=== PATIENT | male | born 1970 ===

== ENCOUNTER 2016-07-28 08:07 | Emergency (ER) | payer BC, OTHER ==
--- NOTE | 2016-07-28 08:14 | UC ---
Skin Complaint HPI - HPI Summary HPI Summary: Itchy rash in axillae and groin onset 4 days ago; pt suspects allergy but was on boy hemat[place] trip this weekend and was walking and sweating. NOw with redness and itching in the groin and arm pits. NO other rash. no fever. [ End ] - History of Current Complaint Stated Complaint: RASH Hx Obtained From: Patient Onset/Duration: Gradual Onset Skin Exposure Onset/Duration: Days Ago Onset Severity: Moderate Aggravating: Humidity Alleviating: Nothing Associated Signs & Symptoms: Positive: Negative Related History: Possible Reaction to: Environmental Exposure - Allergy/Home Medications Allergies/Adverse Reactions: Allergies Allergy/AdvReac Type Severity Reaction Status Date / Time No Known Allergies Allergy Verified 07/28/16 08:24 Home Medications: Home Medications Loratadine & Pseudoephedrine [Claritin-D 24 Hour 10-240 mg] 1 tab PO DAILY PRN 07/28/16 [History Confirmed 07/28/16] Review of Systems Constitutional: Negative Skin: Rash Eyes: Negative ENT: Negative Respiratory: Negative Cardiovascular: Negative Gastrointestinal: Negative Genitourinary: Negative Motor: Negative Neurovascular: Negative Musculoskeletal: Negative Neurological: Negative Psychological: Negative All Other Systems Reviewed And Are Negative: Yes PMH/Surg Hx/FS Hx/Imm Hx Previously Healthy: Yes Cardiovascular History Of: Denies: Cardiac Disorders Cancer History Of: Denies: Lung Cancer - Family History Known Family History: Negative: Cardiac Disease - Social History Occupation: Employed Full-time Lives: With Family Alcohol Use: None Substance Use Type: None Physical Exam Triage Information Reviewed: Yes Appearance: Well-Appearing, No Pain Distress, Well-Nourished Vital Signs Reviewed: Yes Eye Exam: Normal ENT Exam: Normal Dental Exam: Normal Neck exam: Normal Neck: Positive: 1 Respiratory Exam: Normal Cardiovascular Exam: Normal Musculoskeletal Exam: Normal Neurological Exam: Normal Psychological Exam: Normal Skin Exam: Normal Skin: Positive: rashes - erythematous macular red rash b/l axilla and in groin as well as gluteal fold. no discharge. no induration. no ecchymosis. Course/Dx - Differential Diagnoses - Skin Complaint Differential Diagnoses: Contact Dermatitis, Drug Rash, Eczema, Local Allergic Reaction, Viral Exanthem - Diagnoses Provider Diagnoses: intertrigo Discharge - Discharge Plan Condition: Good Disposition: HOME Prescriptions: Fluconazole [Diflucan 150 MG (NF)] 150 mg PO ONCE #2 tab Nystatin/Triamcinolon OINT(NF) [Mycolog Oint*] 1 applic .SEE ORDER BID PRN #1 tube PRN Reason: Itching Patient Education Materials: Skin Yeast Infection (ED) Referrals: Colton Sanders MD [Primary Care Provider] - 3 Days
[2016-07-28 08:53] VITALS: BP 134/66
== END 2016-07-28 08:45 | disposition home or self-care (01) ==
LOC: UCCORT 08:07
DX: L30.4 Erythema intertrigo (principal)
CPT/HCPCS: 99212; G0463